=== PATIENT | male | born 1980 | race Caucasian/White ===

== ENCOUNTER 2019-01-28 12:45 | Observation (INO) | payer SELFPAY ==
[~2019-01-28] VITALS: Ht 203.2 cm; Wt 149.7 kg
[2019-01-28] MEDS ORDERED: ASPIRIN 81 MG CHEW TAB PO ONE ×2 (13:00→14:15)
[2019-01-28] MEDS: MORPHINE SULFATE 2 MG/ML SYR 1ML IV PRN (13:12)
[2019-01-28] MEDS ORDERED: DIPHENHYDRAMINE HCL INJ 50 MG/ML VIAL IV ONE ×2 (13:15→17:15)
[2019-01-28] MEDS ORDERED: MORPHINE SULFATE INJ 4 MG/ML INJ 1ML IV PRN (13:15)
--- NOTE | 2019-01-28 13:21 | Diagnostic Imaging Report ---
Chest, 1 view, 01/28/2019. History: Chest pain. Comparison: None available. Findings: There is poor inspiration. The cardiomediastinal silhouette and pulmonary vasculature are within normal limits for a portable exam. There is no focal consolidation or pleural effusion. Left subclavian dual-lead pacer is present. There are no acute osseous or soft tissue abnormalities. Impression: No acute cardiopulmonary abnormality. Signed by: Jabari Pineda on 01/28/2019 1:18 PM
[2019-01-28 13:24] LABS: BASOPHILS % 0.4 % (0.0-1.0); EOSINOPHILS # (AUTO) 0.1 (0.0-0.4); EOSINOPHILS % 1.8 % (0.0-6.0); HEMATOCRIT 27.1 % (38.2-49.6); HEMOGLOBIN 8.1 g/dL (14.0-18.0); LYMPHOCYTES # (AUTO) 0.7 (1.0-3.2); LYMPHOCYTES % 13.9 % (18.0-39.1); MEAN CORPUSCULAR HEMOGLOBIN 24.8 pg (28-32); MEAN CORPUSCULAR HGB CONC 29.9 g/dL (31-35); MEAN CORPUSCULAR VOLUME 82.9 fL (81-99); MONOCYTES # (AUTO) 0.4 (0.2-0.8); MONOCYTES % 8.5 % (4.4-11.3); NEUTROPHILS # (AUTO) 3.8 (2.1-6.9); NEUTROPHILS % 75.2 % (38.7-80.0); PLATELET COUNT 140 x10e3/uL (140-360); RED BLOOD COUNT 3.27 x10e6/uL (4.3-5.7); RED CELL DISTRIBUTION WIDTH 15.6 % (11.7-14.4)
[2019-01-28 13:32] LABS: BILIRUBIN,URINE NEGATIVE (NEGATIVE); CLARITY,URINE CLEAR (CLEAR); COLOR,URINE YELLOW (YELLOW); KETONES,URINE NEGATIVE (NEGATIVE); LEUKOCYTE ESTERASE ,URINE NEGATIVE (NEGATIVE); NITRITE,URINE NEGATIVE (NEGATIVE); PROTEIN,URINE DIPSTICK NEGATIVE (NEGATIVE); URINE UROBILINOGEN 0.2 mg/dL (0.2 - 1)
[2019-01-28 13:36] LABS: ALANINE AMINOTRANSFERASE 7 IU/L (0-55); ALBUMIN 3.4 g/dL (3.5-5.0); ALBUMIN/GLOBULIN RATIO 1.5 (0.8-2.0); ALKALINE PHOSPHATASE 69 IU/L (40-150); ANION GAP 11.9 mmol/L (8-16); BLOOD UREA NITROGEN 15 mg/dL (7-26); BUN/CREATININE RATIO 16 (6-25); CALCIUM 8.7 mg/dL (8.4-10.2); CARBON DIOXIDE 25 mmol/L (22-29); CHLORIDE 107 mmol/L (98-107); CREATINE KINASE 57 IU/L (30-200); CREATININE, SERUM 0.94 mg/dL (0.72-1.25); EST GLOMERULAR FILTRATION RATE > 60 ML/MIN (60-); GLUCOSE 116 mg/dL (74-118); POTASSIUM 3.9 mmol/L (3.5-5.1); SODIUM 140 mmol/L (136-145)
[2019-01-28 13:40] LABS: INR 1.05; PROTHROMBIN TIME 14.2 seconds (11.9-14.5)
[2019-01-28 13:40] LABS: AMPHETAMINES SCREEN,URINE NEGATIVE (NEGATIVE); BENZODIAZEPINES SCREEN,URINE POSITIVE (NEGATIVE); PHENCYCLIDINE SCREEN,URINE NEGATIVE (NEGATIVE)
[2019-01-28 13:41] LABS: PARTIAL THROMBOPLASTIN TIME 22.6 seconds (23.8-35.5)
[2019-01-28 13:55] LABS: BACTERIA,URINE RARE /HPF; EPITHELIAL CELLS,URINE FEW /LPF; RBC,URINE 0-5 /HPF (0-5); WBC,URINE (MAN) 0-5 /HPF (0-5)
[2019-01-28 14:03] LABS: EOSINOPHILS % (MANUAL) 1 % (0-7); LYMPHOCYTES % (MANUAL) 14 % (19-48); MONOCYTES % (MANUAL) 6 % (3.4-9.0); NEUTROPHILS % (MANUAL) 79 % (40-74); PLATELET ESTIMATE MODERATELY DECREASED; RBC MORPHOLOGY COMMENT NORMAL
--- OUTSIDE RECORDS SUMMARY | 2019-01-28 14:23 | XMS REPORT ---
Author Author [facility] Address Unknown Phone Unavailable Care Team Providers Care Dry Cell And Battery Assembler Name Role Phone GRUPO GRIER Unavailable Unavailable Problems This patient has no known problems. Allergies, Adverse Reactions, Alerts This patient has no known allergies or adverse reactions. Medications This patient has no known medications. Results Test Description Test Time Test Comments Text Results Atomic Results Result Comments CHEST SINGLE (PORTABLE) 2019-01-28 13:17:00 [place] [address] Patient Name: SHYAM BULLOCK MR #: [id number] : 1980 Age/Sex: 38/M Req #: [id number] Adm Physician: Ordered by: RITA HAMEED APPAREL FASHION DESIGNER Report #: [id number] Location: ER Room/Bed: Procedure: [id number] DX/CHEST SINGLE (PORTABLE) Exam Date: 01/28/19 Exam Time: 1300 REPORT STATUS: Signed Chest, 1 view, 01/28/2019. History: Chest pain. Comparison: None available. Findings: There is poor inspiration. The cardiomediastinal silhouette and pulmonary vasculature are within normal limits for a portable exam. There is no focal consolidation or pleural effusion. Left subclavian dual-lead pacer is present. There are no acute osseous or soft tissue abnormalities. Impression: No acute cardiopulmonary abnormality. Signed by: Nash Pineda on 01/28/2019 1:18 PM Dictated By: NASH PINEDA MD 17 Transcribed By: DARRICK on 01/28/191317 COPY TO: RITA HAMEED NP
[2019-01-28] MEDS ORDERED: PLAVIX75 MG PO (14:29)
[2019-01-28] MEDS ORDERED: ISOSORBIDE MONO30 MG PO (14:30)
[2019-01-28] MEDS ORDERED: LISINOPRIL10 MG PO (14:30)
[2019-01-28] MEDS ORDERED: METOPROLOL SUC100 MG PO (14:31)
[2019-01-28] MEDS ORDERED: ATORVASTATIN CA20 MG PO (14:31)
[2019-01-28] MEDS ORDERED: ZANAFLEX6 MG PO (14:33)
[2019-01-28] MEDS ORDERED: LYRICA50 MG PO (14:34)
[2019-01-28] MEDS ORDERED: ATIVAN2 MG PO (14:34)
[2019-01-28] MEDS ORDERED: AMBIEN10 MG PO (14:34)
[2019-01-28] MEDS ORDERED: COLACE100 MG PO (14:35)
[2019-01-28] MEDS ORDERED: ROPINIROLE HCL1 MG PO (14:35)
[2019-01-28] MEDS ORDERED: OXYCODONE HCL20 M1 PO (14:36)
[2019-01-28] MEDS ORDERED: FENTANYL1 EAC1 TP (14:38)
[2019-01-28] MEDS ORDERED: ELIQUIS PO (14:39)
[2019-01-28] MEDS: FENTANYL 100 MCG/HR PATCH TOP SCH (15:02)
[2019-01-28] MEDS ORDERED: MORPHINE SULFATE 2 MG/ML SYR 1ML IV STA (17:02)
--- NOTE | 2019-01-28 18:00 | NUR ---
Patient arrived to the floor from the ER. He is awake alert and oriented x 3, oriented the patient to the room and explained how to use the call light. He verbalized understanding. Patient came to the floor with right midline in place,.
[2019-01-28 18:25] VITALS: BP 149/71
--- NOTE | 2019-01-28 18:30 | NUR ---
Patient is asking about home medications, notified RING SORTER of patient home meds. New orders received
[2019-01-28] MEDS ORDERED: TIZANIDINE HCL PO PRN (18:45)
[2019-01-28] MEDS ORDERED: OXYCODONE HCL 20 MG TAB CR PO PRN (18:45)
[2019-01-28] MEDS ORDERED: DOCUSATE SODIUM 100 MG CAP PO PRN (18:45)
[2019-01-28] MEDS ORDERED: NON-FORMULARY MEDICATION (Eliquis 5 MG) PO SCH (19:00)
[2019-01-28] MEDS: ATORVASTATIN 40 MG TAB PO SCH (19:53)
[2019-01-28] MEDS: OXYCODONE HCL IR 5 MG TAB PO PRN (19:54)
[2019-01-28] MEDS: PREGABALIN 50 MG CAP PO SCH (19:54)
[2019-01-28] MEDS: ROPINIROLE HCL 1 MG TAB PO SCH (19:55)
[2019-01-28 20:00] VITALS: BP 121/59
[2019-01-28] MEDS ORDERED: APIXABAN 5 MG TABLET PO SCH (20:00)
--- NOTE | 2019-01-28 20:10 | NUR ---
DR BACON HERE TO SEE PATIENT
[2019-01-28] MEDS: DIPHENHYDRAMINE HCL INJ 50 MG/ML VIAL IV PRN (20:18)
[2019-01-28 21:00] VITALS: BP 121/59
[2019-01-28] MEDS ORDERED: ATORVASTATIN 20 MG TAB PO SCH (21:00)
[2019-01-28] MEDS ORDERED: LORAZEPAM PO SCH (21:00)
[2019-01-28] MEDS ORDERED: LORAZEPAM 1 MG TAB PO SCH ×2 (21:00)
[2019-01-28] MEDS ORDERED: ZOLPIDEM TARTRATE 10 MG TAB PO SCH (21:00)
[2019-01-28 21:35] LABS: CREATINE KINASE MB 0.9 ng/mL (0-5.0)
[2019-01-29] VITALS (7 sets, daily range): BP systolic 120–160; BP diastolic 58–95
--- NOTE | 2019-01-29 00:50 | NUR ---
COMPLETED DRESSING CHANGE TO RIGHT MID LINE.
[2019-01-29] MEDS: OXYCODONE HCL IR 5 MG TAB PO PRN ×6 (01:00→20:30)
[2019-01-29] MEDS: MORPHINE SULFATE 2 MG/ML SYR 1ML IV PRN (02:15)
[2019-01-29 02:33] LABS: BASOPHILS % 0.5 % (0.0-1.0); EOSINOPHILS # (AUTO) 0.1 (0.0-0.4); EOSINOPHILS % 3.6 % (0.0-6.0); HEMATOCRIT 25.7 % (38.2-49.6); HEMOGLOBIN 7.7 g/dL (14.0-18.0); LYMPHOCYTES # (AUTO) 0.8 (1.0-3.2); LYMPHOCYTES % 20.1 % (18.0-39.1); MEAN CORPUSCULAR HEMOGLOBIN 24.9 pg (28-32); MEAN CORPUSCULAR VOLUME 83.2 fL (81-99); MONOCYTES # (AUTO) 0.5 (0.2-0.8); MONOCYTES % 11.5 % (4.4-11.3); NEUTROPHILS # (AUTO) 2.5 (2.1-6.9); NEUTROPHILS % 63.8 % (38.7-80.0); PLATELET COUNT 171 x10e3/uL (140-360); RED BLOOD COUNT 3.09 x10e6/uL (4.3-5.7); RED CELL DISTRIBUTION WIDTH 15.8 % (11.7-14.4)
--- NOTE | 2019-01-29 02:47 | Consultation ---
DATE OF CONSULTATION: 01/28/2019 CONSULTING PHYSICIAN: Messi Cisneros MD, Interventional Cardiology. REASON FOR CONSULTATION: Chest pain. HISTORY OF PRESENT ILLNESS: A 38-year-old man with history of morbid obesity, CAD with reported prior non-STEMI approximately a year ago, resides in [facility]. His father is a retired emr implementation specialist and he works as an EMT. History of sick sinus syndrome, status post [employer] pacemaker, history of paroxysmal atrial fibrillation, history of reported DVT following knee surgery, for which he has been on Eliquis, hypertension, dyslipidemia, chronic pain, status post several surgeries to left lower extremity hip and knee reportedly presenting with complaints of chest discomfort associated with nausea and vomiting, coffee-ground. He reports recent labs, stress test, and echocardiogram [place], report currently unavailable. However, the patient states his will bring them in. He describes an echo and a stress test and reports having had an abnormal stress test, pending confirmation of results by our team. He also describes having a hemoglobin of 15 earlier this week and presenting now with a hemoglobin 8.1, reason why GI has been consulted and a fecal occult blood test has been ordered and is pending. He has been on Eliquis, aspirin and Plavix. His chest discomfort has improved, peak was 8, radiating to neck and left upper extremity associated with diaphoresis, nausea, vomiting, and now has decreased to 3. His initial cardiac biomarkers were negative. EKG shows sinus rhythm with no significant ST abnormalities. REVIEW OF SYSTEMS: A 12-system review is negative except for as noted above. ALLERGIES: TO HEPARIN, KETOROLAC, AND ADHESIVE TAPE. PAST MEDICAL HISTORY: As per HPI. SOCIAL HISTORY: Denies alcohol, drugs, or smoking. FAMILY HISTORY: Noncontributory. PHYSICAL EXAMINATION: VITAL SIGNS: Temperature 99.2, heart rate 80, blood pressure 149/71, respiratory rate 20, O2 saturation 97%. BMI 36.2. GENERAL: No acute distress. Alert. NECK: No JVD. CHEST: Clear to auscultation. CARDIOVASCULAR: Regular rate and rhythm. Normal S1, S2. No S3, no S4. No murmurs or rubs. ABDOMEN: Soft, nontender, nondistended. Bowel sounds positive. EXTREMITIES: No edema. Warm distal extremities. CARDIOVASCULAR MEDICATIONS: Reviewed. Atorvastatin 80 mg at bedtime, Eliquis 5 mg every 12 hours, metoprolol 100 mg daily extended release, clopidogrel 75 mg daily, lisinopril 20 mg daily, isosorbide mononitrate 30 mg daily. The patient is also on pregabalin, oxycodone, fentanyl patch, morphine p.r.n., reporting rash to adhesive tape ongoing, for which he normally takes Benadryl. ASSESSMENT: 1. Atypical chest pain. 2. Anemia in the setting of triple antiplatelet/anticoagulant therapy. 3. Status post pacemaker for sick sinus syndrome and paroxysmal atrial fibrillation. 4. Morbid obesity. 5. Chronic pain syndrome. 6. Coronary artery disease with previous PTCA of distal RCA for history of cardiac arrest, while on the table under prior intervention. 7. Reported abnormal stress test recently done out of state, pending reports for review. The patient states his family will bring them for review. RECOMMENDATIONS: 1. Serial cardiac biomarkers to rule out AMI. 2. Trend H and H. Check fecal occult blood test. Agree with GI evaluation. 3. Hold Eliquis for now. 4. If acute gross bleeding is observed., then please hold aspirin and clopidogrel. 5. Continue beta-ortiz. 6. Suggest Pain Management consultation to assist the patient with multiple drugs including benzos and opiates, that the patient reports taking. 7. If echocardiogram is unavailable tomorrow for review, we will order one in- house. MD ANTONIETA Tsang/NESTOR /[id number]
[2019-01-29 02:48] LABS: CHOL/HDL RATIO 2.9 (3.9-4.7)
[2019-01-29 02:58] LABS: CREATINE KINASE MB 0.8 ng/mL (0-5.0)
[2019-01-29 03:09] LABS: FERRITIN 47.38 ng/mL (21.81-274.66); FREE T4 (FREE THYROXINE) 0.97 ng/dL (0.8-1.8); THYROID STIMULATING HORMONE 3.074 uIU/mL (0.350-4.940)
[2019-01-29 04:02] LABS: FOLATE 14.6 ng/mL (7.0-15.4)
[2019-01-29] MEDS: DIPHENHYDRAMINE HCL INJ 50 MG/ML VIAL IV PRN (04:15)
[2019-01-29] MEDS: FENTANYL 100 MCG/HR PATCH TOP SCH (06:11)
[2019-01-29] MEDS ORDERED: DIPHENHYDRAMINE HCL 30 GM TUBE TOP PRN (06:15)
--- NOTE | 2019-01-29 06:15 | NUR ---
PATIENT STATED THAT THE OLD [place] PATCH FELL OFF DURING THE SHOWER. NURSE DISPOSED OLD PATCH. NOTIFIED DIRECTORY CLERK NATHANIEL WHO WAS MOLD MOVER FOR DR JACOBO. DIRECTORY CLERK SAID OKAY TO PUT NEW PATCH BACK ON.
[2019-01-29] MEDS: PANTOPRAZOLE SOD 40 MG TABEC PO SCH ×2 (06:20→08:41)
--- NOTE | 2019-01-29 06:44 | NUR ---
PATIENT REFUSE SCD. NOTIFIED MUSTAPHA LAWLER
[2019-01-29] MEDS ORDERED: CITRATE OF MAGNESIA 300ML BOTTLE PO ONE (06:45)
--- NOTE | 2019-01-29 06:47 | NUR ---
PATIENT REFUSE MRI AND CT OF BRAIN AND NECK. NOTIFIED PORTABLE TRACK CREW CHIEF NURIS.
[2019-01-29 07:55] LABS: ALANINE AMINOTRANSFERASE 11 IU/L (0-55); ALBUMIN 3.2 g/dL (3.5-5.0); ALBUMIN/GLOBULIN RATIO 1.2 (0.8-2.0); ALKALINE PHOSPHATASE 66 IU/L (40-150); ANION GAP 15.1 mmol/L (8-16); BLOOD UREA NITROGEN 17 mg/dL (7-26); BUN/CREATININE RATIO 19 (6-25); CALCIUM 8.6 mg/dL (8.4-10.2); CARBON DIOXIDE 22 mmol/L (22-29); CHLORIDE 110 mmol/L (98-107); CREATININE, SERUM 0.91 mg/dL (0.72-1.25); EST GLOMERULAR FILTRATION RATE > 60 ML/MIN (60-); GLUCOSE 78 mg/dL (74-118); POTASSIUM 4.1 mmol/L (3.5-5.1); SODIUM 143 mmol/L (136-145)
[2019-01-29] MEDS: PREGABALIN 50 MG CAP PO SCH ×3 (08:41→20:29)
[2019-01-29] MEDS: ROPINIROLE HCL 1 MG TAB PO SCH ×2 (08:41→15:19)
[2019-01-29] MEDS: TIZANIDINE HCL 4 MG TAB PO PRN ×2 (08:42→17:59)
[2019-01-29] MEDS ORDERED: METOPROLOL SUCCINATE 50 MG TAB XL PO SCH (09:00)
[2019-01-29] MEDS ORDERED: NON-FORMULARY MEDICATION (Metoprolol Succinate 100 MG) PO SCH (09:00)
[2019-01-29] MEDS ORDERED: ISOSORBIDE MONONITRATE 30 MG TAB CR PO SCH (09:00)
[2019-01-29] MEDS ORDERED: LISINOPRIL 10 MG TAB PO SCH (09:00)
[2019-01-29] MEDS ORDERED: ASPIRIN 325 MG TAB EC PO SCH (09:00)
[2019-01-29] MEDS ORDERED: CLOPIDOGREL BISULFATE 75 MG TAB PO SCH (09:00)
[2019-01-29] MEDS ORDERED: LISINOPRIL 20 MG TAB PO SCH (09:00)
[2019-01-29] MEDS ORDERED: ONDANSETRON HCL INJ 2MG/ML 2ML 2 MG/ML VIAL ONE ×2 (09:42→16:32)
[2019-01-29 10:34] LABS: CREATINE KINASE MB 0.8 ng/mL (0-5.0)
--- NOTE | 2019-01-29 11:02 | NUR ---
Stool sample taken to lab
--- NOTE | 2019-01-29 11:42 | NUR ---
PT STATES HE HAS BLUE CROSS BLUE SHIELD INSURANCE I CALLED AND LEFT MESSAGE WITH DALTON TO LET KNOW PT REPORT.
--- NOTE | 2019-01-29 11:51 | NUR ---
Patient is asking for Benadryl IV. Told patient he has Benadryl cream and not IV Benadryl ordered. Patient said, "OK then I am removing telemetry then". SANITATION OFFICER notified.
--- NOTE | 2019-01-29 12:31 | NUR ---
ATTEMPTED TO GIVE A SELF PAY PACKET, PT BECAME OFFENDED AND STATED HE DID NOT WANT IT. SPOKE WITH NURSE AND LET KNOW SPOKE WITH DALTON IN BUSINESS OFFICE
--- NOTE | 2019-01-29 13:04 | Progress Note ---
DATE: 01/29/2019 Cardiology Progress Note SUBJECTIVE: Denies any recurrent chest pain or shortness of breath. Hemoglobin at 7.7 today. Eliquis, aspirin and clopidogrel have been held for now. The patient is requesting increasing dose of Benadryl and is also discussing use of multiple sedative/opiates with his pain management doctor is being consulted here. OBJECTIVE: VITAL SIGNS: Temperature 98 degrees, heart rate 72, respiratory rate 20, blood pressure 160/95, O2 saturation 98% on room air. GENERAL: No acute distress, alert. NECK: No JVD. CHEST: Clear to auscultation. CARDIOVASCULAR: Regular rate and rhythm. Normal S1, S2. ABDOMEN: Soft, nontender, nondistended. EXTREMITIES: No cyanosis clubbing or edema. CARDIOVASCULAR MEDICATIONS: Reviewed. Lisinopril 20 mg daily, metoprolol succinate 100 mg daily, isosorbide mononitrate 30 mg daily, atorvastatin 80 mg at bedtime, aspirin 325 mg daily. STUDIES: Reviewed. White blood cells 3.9, hemoglobin 7.7, down from 8.1, platelets of 171. RDW is 15.8 and MCV is 83.2. INR 1, PTT 14, PTT 26.2. Sodium 143, potassium 4.1, chloride 110, bicarbonate 22, BUN 17, creatinine 0.91, glucose 78, calcium 8.6, AST 15, ALT 11, total protein 5.8, albumin 3.2. LDL 54, HDL 36, TSH 3, telemetry remains in a paced, V sensed rhythm. ASSESSMENT: 1. Atypical chest pain. 2. Anemia in the setting of triple anti-platelet and anticoagulant therapy now with aspirin and Plavix and Eliquis on hold. 3. Status post pacemaker for reported history of sick sinus syndrome, paroxysmal atrial fibrillation. 4. Morbid obesity. 5. Chronic pain syndrome. 6. Coronary artery disease with remote history of distal RCA more than one year ago. RECOMMENDATIONS: 1. Still awaiting reports. The patient describes family to bring abnormal stress test and echocardiogram. 2. Anemia workup underway. GI has been consulted and anticoagulants are currently on hold. 3. Defer benzos, Benadryl, analgesics, sedative or psychiatric medication to other treating physicians. I will restrict myself to Cardiology. 4. Continue current beta-ortiz dose. MD ANTONIETA Tsang/SAGEL /[id number]
--- NOTE | 2019-01-29 15:30 | NUR ---
Visit made by the Spiritual Care Department Pastoral Visitor, Stacey Miller. PV provided pastoral presence, hospitality, and supportive listening. Pastoral Visitor informed pt/family of the scope of Marketing Researcher Services and availability. SARKIS SLADE Outside Sales Account Executive Spiritual Care Department O: [phone] Pager: [phone] ([phone] number calling from)
[2019-01-29] MEDS ORDERED: ONDANSETRON HCL INJ 2MG/ML 2ML 2 MG/ML VIAL IV PRN (16:45)
[2019-01-29 17:22] LABS: HEMATOCRIT 24.9 % (38.2-49.6); HEMOGLOBIN 7.4 g/dL (14.0-18.0)
--- NOTE | 2019-01-29 17:43 | NUR ---
DRAFTER HEATING AND VENTILATING notified of hgb level 7.4 New orders received
[2019-01-29] MEDS ORDERED: SODIUM CHLORIDE 0.9% 250ML 250 ML IV NR (18:00)
[2019-01-29] MEDS ORDERED: ASCORBIC ACID500 MG PO (18:09)
[2019-01-29] MEDS ORDERED: FERROUS SULFAT325 MG PO (18:09)
[2019-01-29] MEDS ORDERED: PROTONIX40 MG/ML PO (18:09)
--- NOTE | 2019-01-29 19:40 | NUR ---
Pt saw during nursing rounds. Patient alert and oriented x3. No distress noted and pt states he has frequent pain on left hip. Pt mentions he had accident before where he had 11 surgeries in the past. Patient verbally informed at [facility] (Sarita Robertson, JOSH) and me (Jose Christina RN - bss solution architect nurse) as witness that the patient had an discharge order from Lucinda Morrow (TEACHERS' ASSISTANT for Dr. Birmingham) with a condition of the following: Give patient 1 unit of PRBC and if no STRESS TEST results provided when transfusion was done, that the patient will be discharged home. Patient aware and appear quite upset upon hearing the discharge order condition written by Lucinda but did not complain about it. Call chavis within reach. Will monitor pt closely.
[2019-01-29] MEDS: ATORVASTATIN 40 MG TAB PO SCH (20:29)
--- NOTE | 2019-01-29 20:30 | NUR ---
Blood transfusion consent form signed by patient with night nurse (Jose) as witness.
--- NOTE | 2019-01-29 20:35 | NUR ---
Received phone call from Lucinda Morrow (MUSTAPHA). Informed Lucinda blood transfusion about to be given tonight. Lucinda aware that no stress test result handed by patient and informed night nurse (Jose) that she wants the patient discharged home as soon as the blood transfusion finishes. Patient still adamant that his is coming tonight to bring paper work revealing Stress Test results.
--- NOTE | 2019-01-29 20:40 | NUR ---
obtained blood unit from lab per orders. upon return to unit pt not in rm. 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 bracelets found cut and in hallway from pt. electrician powerhouse and primary nurse notified.
--- NOTE | 2019-01-29 20:45 | NUR ---
No discharge paperwork or against medical advice form signed by patient since patient has left unit unexpectedly.
--- NOTE | 2019-01-29 20:48 | NUR ---
blood unit returned to lab at time. primary nurse notified.
--- NOTE | 2019-01-29 20:50 | NUR ---
Spoke with patient (Delvin Rapp) over the phone and patient informed he needed to come back for his safety and that his midline IV needs to be taken out. Patient mentioned he needed to leave because he was not treated right at [facility] then patient hung up the phone.
--- NOTE | 2019-01-29 20:54 | NUR ---
Called Daja Claros (PUBLIC HEALTH ENGINEER for Dr. Birmingham and covering for Lucinda Morrow) to inform that the patient has left his room without notifying the nurse or any staff on the unit station (MS 2). Explained to Daja regarding patient information and that the patient left with a midline IV still on the patient's right upper arm and that he has not signed any against medical advice papers. Daja has requested that the police be called and help find the patient and possibly the patient can be brought back to the Emergency room at [facility] where a nurse or doctor can properly take out the patient's midline IV.
--- NOTE | 2019-01-29 21:00 | NUR ---
Rekha Maxwell (It Audit Manager) notified of incident (patient left AMA) and that Daja Claros (STANDPIPE TENDER for Dr. Birmingham) has requested to call police to help locate patient and bring back to the ER to remove patient's midline IV. Described to It Audit Manager patient's physical appearance and what patient was wearing (Black t-shirt and khaki pants).
== END 2019-01-29 21:16 | disposition left against medical advice (07) ==
LOC: ER 12:45 → ERHOLD 14:06 → MED/SURG2 18:23
PROVIDERS: ADMIT Internal Medicine; ATTEND Internal Medicine
DX: R07.89 Other chest pain (principal); I50.9 Heart failure, unspecified; I25.10 Atherosclerotic heart disease of native coronary artery without angina pectoris; E78.5 Hyperlipidemia, unspecified; I48.0 Paroxysmal atrial fibrillation; R55 Syncope and collapse; I25.2 Old myocardial infarction; D62 Acute posthemorrhagic anemia; G89.4 Chronic pain syndrome; I11.0 Hypertensive heart disease with heart failure; E66.01 Morbid (severe) obesity due to excess calories; Z95.0 Presence of cardiac pacemaker; Z88.8 Allergy status to other drugs, medicaments and biological substances; Z91.048 Other nonmedicinal substance allergy status; Z68.36 Body mass index [BMI] 36.0-36.9, adult; Z96.642 Presence of left artificial hip joint; Z86.718 Personal history of other venous thrombosis and embolism; Z79.01 Long term (current) use of anticoagulants
CPT/HCPCS: 36415; 71045; 80053; 80061; 80307; 81001; 82270; 82550; 82553; 82607; 82728; 82746; 83036; 83540; 84439; 84443; 84466; 84484; 85014; 85018; 85025; 85610; 85730; 86850; 86900; 86920; 93005; 93306; 99284; G0378; J1200; J2270; J2405; J7050; P9016